=== PATIENT | female | born 1990 | race American Indian/Alaskan Native ===

== ENCOUNTER 2016-10-02 09:11 | Emergency (ER) | payer OTHER ==
[2016-10-02 09:20] VITALS: BP 120/82
--- NOTE | 2016-10-02 10:22 | Emergency Department Report ---
ED Back Pain/Injury HPI - General Chief Complaint: Back Pain/Injury Stated Complaint: RIGHT ARM, HAND AND BACK PAIN Time Seen by Provider: 10/02/16 10:21 Source: patient Limitations: No Limitations - History of Present Illness MD Complaint: back pain -: Gradual, week(s) Similar Symptoms Previously: Yes Radiation: other (right arm) Quality: burning, tingling Consistency: constant Improves With: none Worsens With: movement, sitting upright, walking, deep breaths/cough Associated Symptoms: denies: confusion, weakness, chest pain, numbness, difficulty walking, cough, difficulty urinating, fever/chills, headaches, nausea /vomiting, rash, shortness of breath, syncope - Related Data Previous Rx's Medication Instructions Recorded Last Taken Type HYDROcodone/APAP 5-325 [Sophia 1 each PO Q4HR PRN #15 tablet 02/13/15 Unknown Rx 5-325 mg TAB] Famotidine [Pepcid] 20 mg PO BID #40 tablet 08/17/15 Unknown Rx Hyoscyamine Subl [Levsin Sl 0.125 0.125 mg SL Q6HR PRN #20 tab 08/17/15 Unknown Rx TAB] Promethazine [Phenergan TAB] 25 mg PO Q6HR PRN #30 tab 08/17/15 Unknown Rx Metaxalone [Skelaxin] 800 mg PO TID #15 tablet 10/02/16 Unknown Rx traMADol [Ultram 50 MG tab] 50 mg PO Q4HR PRN #12 tablet 10/02/16 Unknown Rx Allergies Allergy/AdvReac Type Severity Reaction Status Date / Time No Known Allergies Allergy Unverified 02/13/15 19:10 ED Review of Systems ROS: Stated complaint: RIGHT ARM, HAND AND BACK PAIN Other details as noted in HPI Constitutional: see HPI Eyes: as per HPI ENT: as per HPI Respiratory: no symptoms reported Cardiovascular: as per HPI Gastrointestinal: as per HPI Genitourinary: as per HPI Musculoskeletal: back pain Skin: denies: rash, lesions Neurological: paresthesias (right arm). denies: headache ED Past Medical Hx - Past Medical History Previous Medical History?: No - Surgical History Past Surgical History?: Yes Additional Surgical History: tubal ligation - Social History Smoking Status: Never Smoker Substance Use Type: None - Medications Home Medications: Home Medications Medication Instructions Recorded Confirmed Last Taken Type HYDROcodone/APAP 5-325 [Sophia 1 each PO Q4HR PRN #15 tablet 02/13/15 Unknown Rx 5-325 mg TAB] Famotidine [Pepcid] 20 mg PO BID #40 tablet 08/17/15 Unknown Rx Hyoscyamine Subl [Levsin Sl 0.125 0.125 mg SL Q6HR PRN #20 tab 08/17/15 Unknown Rx TAB] Promethazine [Phenergan TAB] 25 mg PO Q6HR PRN #30 tab 08/17/15 Unknown Rx Metaxalone [Skelaxin] 800 mg PO TID #15 tablet 10/02/16 Unknown Rx traMADol [Ultram 50 MG tab] 50 mg PO Q4HR PRN #12 tablet 10/02/16 Unknown Rx ED Physical Exam - General Limitations: No Limitations General appearance: alert, in no apparent distress - Head Head exam: Present: atraumatic, normocephalic - Eye Eye exam: Present: PERRL, EOMI Pupils: Present: normal accommodation - ENT ENT exam: Present: normal exam, mucous membranes moist - Neck Neck exam: Present: tenderness (right torticollis), full ROM. Absent: normal inspection, meningismus, lymphadenopathy - Respiratory Respiratory exam: Present: normal lung sounds bilaterally. Absent: respiratory distress - Cardiovascular Cardiovascular Exam: Present: regular rate - Extremities Exam Extremities exam: Present: normal inspection, full ROM, normal capillary refill - Expanded Upper Extremity Exam Right Upper Arm exam: Present: normal inspection, full ROM. Absent: tenderness, swelling, ecchymosis, deformity Elbow exam: Present: normal inspection, full ROM. Absent: tenderness, swelling , ecchymosis, deformity Forearm Wrist exam: Present: normal inspection, full ROM. Absent: tenderness, swelling, ecchymosis Hand Wrist exam: Present: normal inspection, full ROM. Absent: tenderness, swelling, ecchymosis, deformity Neuro motor exam: Present: wrist extension intact, thumb opposition intact, thumb IP flexion intact, thumb adduction intact, fingers 2-5 abduction intact Neurosensory exam: Present: 2-point discrimination Vascular: Present: normal capillary refill. Absent: vascular compromise ED Course Vital Signs 10/02/16 09:15 Temperature 98.3 F Pulse Rate 87 Respiratory 18 Rate Blood Pressure 120/82 O2 Sat by Pulse 100 Oximetry Critical care attestation.: If time is entered above; I have spent that time in minutes in the direct care of this critically ill patient, excluding procedure time. ED Disposition Clinical Impression: Torticollis, Radiculopathy Disposition: DISCHARGED TO HOME OR SELFCARE Is pt being admited?: No Condition: Stable Instructions: Cervical Radiculopathy (ED) Prescriptions: Metaxalone [Skelaxin] 800 mg PO TID #15 tablet traMADol [Ultram 50 MG tab] 50 mg PO Q4HR PRN #12 tablet PRN Reason: Pain Referrals: PRIMARY CARE,MD [Primary Care Provider] - 3-5 Days Forms: Work/School Release Form(ED)
== END 2016-10-02 10:50 | disposition home or self-care (01) ==
LOC: ED 09:11
DX: M43.6 Torticollis (principal); M54.10 Radiculopathy, site unspecified
CPT/HCPCS: 99282

== ENCOUNTER 2019-07-13 23:50 | Emergency (ER) | payer SELFPAY ==
--- NOTE | 2019-07-14 03:20 | XRay Report ---
CHEST 1 VIEW 2:45 AM INDICATION / CLINICAL INFORMATION: Chest Pain. COMPARISON: None available. FINDINGS: SUPPORT DEVICES: None. HEART / MEDIASTINUM: The heart size and pulmonary vasculature are normal. The aorta is normal in sky apoorva. LUNGS / PLEURA: No significant pulmonary or pleural abnormality. No pneumothorax. ADDITIONAL FINDINGS: No significant additional findings. IMPRESSION: No acute findings. Signer Name: Adrian Regan MD Signed: 07/14/2019 3:15 AM Workstation Name: [id number]
--- NOTE | 2019-07-14 04:49 | Emergency Department Report ---
ED General Adult HPI - General Chief complaint: Chest Pain Stated complaint: TONGUE NUMB,CHEST PAIN,MOUTH WATERY,EYES HURT Source: patient Mode of arrival: Ambulatory Limitations: No Limitations - History of Present Illness Initial comments: Patient is a 29 yo AA female with no past medical history who presented to the ED with c/o acute onset persistent nasal and sinus congestion, dry cough, sore throat and pleuritic chest wall pain. Patient states that she was initially treated for acute URI and bronchitis about 10 days ago and completed a course of Azithromycin and prednisone dosepak. Patient denies dyspnea, nausea, vomiting, dizziness, chest pain, fever and chills or headache or abdominal pain. MD Complaint: Nasal and sinus congestion; dry cough; pleuritic chest pain -: Sudden, week(s) (1) Location: chest Radiation: non-radiation Severity scale (0 -10): 4 Quality: aching Consistency: constant Improves with: none Worsens with: none Associated Symptoms: denies other symptoms, cough. denies: confusion, chest pain, diaphoresis, fever/chills, headaches, loss of appetite, malaise, nausea/vomiting, rash, seizure, syncope, weakness Treatments Prior to Arrival: none - Related Data Previous Rx's Medication Instructions Recorded Last Taken Type HYDROcodone/APAP 5-325 [Mcintosh 1 each PO Q4HR PRN #15 tablet 02/13/15 Unknown Rx 5-325 mg TAB] Famotidine [Pepcid] 20 mg PO BID #40 tablet 08/17/15 Unknown Rx Hyoscyamine Subl [Levsin Sl 0.125 0.125 mg SL Q6HR PRN #20 tab 08/17/15 Unknown Rx TAB] Promethazine [Phenergan TAB] 25 mg PO Q6HR PRN #30 tab 08/17/15 Unknown Rx Metaxalone [Skelaxin] 800 mg PO TID #15 tablet 10/02/16 Unknown Rx traMADoL [Ultram 50 MG tab] 50 mg PO Q4HR PRN #12 tablet 10/02/16 Unknown Rx Azithromycin [Zithromax Z-BERTRAND] 250 mg PO DAILY #6 tab 07/01/18 Unknown Rx Fluticasone [Flonase] 1 spray NS QDAY #1 bottle 07/01/18 Unknown Rx guaiFENesin/CODEINE [Robitussin AC] 5 ml PO Q4H PRN #100 ml 07/01/18 Unknown Rx Azithromycin [Zithromax] 500 mg PO QDAY #3 tablet 07/03/19 Unknown Rx guaiFENesin/CODEINE [Robitussin AC] 5 ml PO Q6H PRN #120 ml 07/03/19 Unknown Rx predniSONE [Deltasone] 50 mg PO QDAY #5 tab 07/03/19 Unknown Rx Albuterol INH(or & Nicu Only) 1 - 2 puff IH Q6H PRN #1 inh 07/14/19 Unknown Rx [ProAir HFA Inhaler] Ibuprofen [Motrin] 600 mg PO Q8H PRN #20 tablet 07/14/19 Unknown Rx Allergies Allergy/AdvReac Type Severity Reaction Status Date / Time No Known Allergies Allergy Unverified 02/13/15 19:10 ED Review of Systems ROS: Stated complaint: TONGUE NUMB,CHEST PAIN,MOUTH WATERY,EYES HURT Other details as noted in HPI Constitutional: denies: chills, fever Eyes: denies: eye pain, eye discharge, vision change ENT: throat pain, congestion. denies: ear pain Respiratory: cough. denies: shortness of breath, SOB with exertion, SOB at rest, stridor, wheezing Cardiovascular: denies: chest pain, palpitations, dyspnea on exertion Endocrine: no symptoms reported Gastrointestinal: denies: abdominal pain, nausea, vomiting, diarrhea Genitourinary: denies: urgency, dysuria, discharge Musculoskeletal: denies: back pain, joint swelling, arthralgia Skin: denies: rash, lesions Neurological: denies: headache, weakness, paresthesias Psychiatric: denies: anxiety, depression Hematological/Lymphatic: denies: easy bleeding, easy bruising ED Past Medical Hx - Past Medical History Previous Medical History?: No - Surgical History Past Surgical History?: Yes Additional Surgical History: tubal ligation - Social History Smoking Status: Never Smoker Substance Use Type: None - Medications Home Medications: Home Medications Medication Instructions Recorded Confirmed Last Taken Type HYDROcodone/APAP 5-325 [Mcintosh 1 each PO Q4HR PRN #15 tablet 02/13/15 Unknown Rx 5-325 mg TAB] Famotidine [Pepcid] 20 mg PO BID #40 tablet 08/17/15 Unknown Rx Hyoscyamine Subl [Levsin Sl 0.125 0.125 mg SL Q6HR PRN #20 tab 08/17/15 Unknown Rx TAB] Promethazine [Phenergan TAB] 25 mg PO Q6HR PRN #30 tab 08/17/15 Unknown Rx Metaxalone [Skelaxin] 800 mg PO TID #15 tablet 10/02/16 Unknown Rx traMADoL [Ultram 50 MG tab] 50 mg PO Q4HR PRN #12 tablet 10/02/16 Unknown Rx Azithromycin [Zithromax Z-BERTRAND] 250 mg PO DAILY #6 tab 07/01/18 Unknown Rx Fluticasone [Flonase] 1 spray NS QDAY #1 bottle 07/01/18 Unknown Rx guaiFENesin/CODEINE [Robitussin AC] 5 ml PO Q4H PRN #100 ml 07/01/18 Unknown Rx Azithromycin [Zithromax] 500 mg PO QDAY #3 tablet 07/03/19 Unknown Rx guaiFENesin/CODEINE [Robitussin AC] 5 ml PO Q6H PRN #120 ml 07/03/19 Unknown Rx predniSONE [Deltasone] 50 mg PO QDAY #5 tab 07/03/19 Unknown Rx Albuterol INH(or & Nicu Only) 1 - 2 puff IH Q6H PRN #1 inh 07/14/19 Unknown Rx [ProAir HFA Inhaler] Ibuprofen [Motrin] 600 mg PO Q8H PRN #20 tablet 07/14/19 Unknown Rx ED Physical Exam - General Limitations: No Limitations General appearance: alert, in no apparent distress - Head Head exam: Present: atraumatic, normocephalic, normal inspection - Eye Eye exam: Present: normal appearance, PERRL, EOMI Pupils: Present: normal accommodation - ENT ENT exam: Present: normal exam, normal orophraynx, mucous membranes moist, TM's normal bilaterally, normal external ear exam - Neck Neck exam: Present: normal inspection, full ROM - Respiratory Respiratory exam: Present: normal lung sounds bilaterally. Absent: respiratory distress, wheezes, rales, rhonchi, chest wall tenderness, accessory muscle use, decreased breath sounds - Cardiovascular Cardiovascular Exam: Present: regular rate, normal rhythm, normal heart sounds. Absent: systolic murmur, diastolic murmur, rubs, gallop - GI/Abdominal GI/Abdominal exam: Present: soft, normal bowel sounds. Absent: distended, tenderness, guarding, hyperactive bowel sounds, hypoactive bowel sounds, organomegaly - Extremities Exam Extremities exam: Present: normal inspection, full ROM, normal capillary refill - Back Exam Back exam: Present: normal inspection, full ROM. Absent: muscle spasm, paraspinal tenderness - Neurological Exam Neurological exam: Present: alert, oriented X3, CN II-XII intact, normal gait, reflexes normal - Psychiatric Psychiatric exam: Present: normal affect, normal mood - Skin Skin exam: Present: warm, dry, intact, normal color. Absent: rash ED Course Vital Signs 07/14/19 01:55 Temperature 98.4 F Pulse Rate 70 Respiratory 18 Rate Blood Pressure 142/80 O2 Sat by Pulse 100 Oximetry ED Medical Decision Making - Medical Decision Making This is a 29 yo AA female with no past medical history who presented to the ED with c/o acute onset persistent nasal and sinus congestion, dry cough, sore throat and pleuritic chest wall pain. In the ED patient is alert and oriented x 3, and is in no acute distress. Chest x-ray shows no acute cardiopulmonary abnormalities or pneumonitis. Patient was discharged home on medications, and advised to follow up with her PCP in 5-7 days for reevaluation. - Differential Diagnosis Bronchitis; Pneumonia; URI; Strep pharyngitis Critical care attestation.: If time is entered above; I have spent that time in minutes in the direct care of this critically ill patient, excluding procedure time. ED Disposition Clinical Impression: Acute upper respiratory infection, Left-sided chest wall pain Acute bronchitis Qualifiers: Bronchitis organism: other organism Qualified Code(s): J20.8 - Acute bronchitis due to other specified organisms Disposition: - TO HOME OR SELFCARE Is pt being admited?: No Does the pt Need Aspirin: No Condition: Stable Instructions: Acute Bronchitis (ED), Chest Pain (ED), Upper Respiratory Infection (ED) Additional Instructions: Take medication with food, drink plenty of fluids and follow up with your Primary Care Physician in 7-10 days. Return to the ED immediately if symptoms get worse. Prescriptions: Ibuprofen [Motrin] 600 mg PO Q8H PRN #20 tablet PRN Reason: Pain Albuterol INH(or & Nicu Only) [ProAir HFA Inhaler] 1 - 2 puff IH Q6H PRN #1 inh PRN Reason: Dyspnea Referrals: PRIMARY CARE, [Primary Care Provider] - 3-5 Days Time of Disposition: 04:48 Print Language: KYRGYZ
[2019-07-14 05:37] VITALS: BP 138/80
== END 2019-07-14 05:42 | disposition home or self-care (01) ==
LOC: ED 23:50
DX: J20.8 Acute bronchitis due to other specified organisms (principal); J06.9 Acute upper respiratory infection, unspecified; Z98.51 Tubal ligation status; Z79.899 Other long term (current) drug therapy
CPT/HCPCS: 71045; 93005; 93010

== ENCOUNTER 2021-04-12 21:53 | Emergency (ER) | payer SELFPAY ==
--- NOTE | 2021-04-12 22:27 | Emergency Department Report ---
Minor Respiratory - HPI Stated Complaint: FEVER, CHILLS, DIZZINESS, EYE PAIN Time Seen by Provider: 04/12/21 22:26 Duration: 5 Days Pain Location: Chest Severity: mild Minor Respiratory: Yes Able to Tolerate Fluids, No Rhinorrhea, No Sore Throat, No Ear Pain, No Cough, No Sick Contacts, No Hemoptysis, No Chest Pain, No Shortness of Breath, No Fever Other History: 31 YO COMES TO ER WITH COLD COUGH CONGESTION. SON POS FOR COVID19 LAST WEEK. PT HAD NEG COVID TEST BUT DOESNT FEEL WELL SO SHE COMES TO ER. AMBULATORY AND NON ILL APPEARING ON EXAM ED Review of Systems ROS: Stated complaint: FEVER, CHILLS, DIZZINESS, EYE PAIN Other details as noted in HPI Comment: All other systems reviewed and negative ED Past Medical Hx - Past Medical History Previous Medical History?: No - Surgical History Past Surgical History?: No Additional Surgical History: tubal ligation - Family History Family history: asthma - Social History Smoking Status: Never Smoker Substance Use Type: None - Medications Home Medications: Home Medications Medication Instructions Recorded Confirmed Last Taken Type HYDROcodone/APAP 5-325 [[place] 1 each PO Q4HR PRN #15 tablet 02/13/15 Unknown Rx 5-325 mg TAB] Famotidine [Pepcid] 20 mg PO BID #40 tablet 08/17/15 Unknown Rx Hyoscyamine Subl [Levsin Sl 0.125 0.125 mg SL Q6HR PRN #20 tab 08/17/15 Unknown Rx TAB] Promethazine [Phenergan TAB] 25 mg PO Q6HR PRN #30 tab 08/17/15 Unknown Rx Metaxalone [Skelaxin] 800 mg PO TID #15 tablet 10/02/16 Unknown Rx traMADoL [Ultram 50 MG tab] 50 mg PO Q4HR PRN #12 tablet 10/02/16 Unknown Rx Azithromycin [Zithromax Z-BERTRAND] 250 mg PO DAILY #6 tab 07/01/18 Unknown Rx Fluticasone [Flonase] 1 spray NS QDAY #1 bottle 07/01/18 Unknown Rx guaiFENesin/CODEINE [Robitussin AC] 5 ml PO Q4H PRN #100 ml 07/01/18 Unknown Rx Azithromycin [Zithromax] 500 mg PO QDAY #3 tablet 07/03/19 Unknown Rx guaiFENesin/CODEINE [Robitussin AC] 5 ml PO Q6H PRN #120 ml 07/03/19 Unknown Rx predniSONE [Deltasone] 50 mg PO QDAY #5 tab 07/03/19 Unknown Rx Albuterol Mdi (or & Nicu Only) 1 - 2 puff IH Q6H PRN #1 inh 07/14/19 Unknown Rx [ProAir HFA Inhaler] Ibuprofen [Motrin] 600 mg PO Q8H PRN #20 tablet 07/14/19 Unknown Rx Minor Respiratory Exam - Exam General: Vital signs noted. No distress. Alert and acting appropriately. HEENT: Yes Moist Mucous Membranes, No Pharyngeal Erythema, No Pharyngeal Exudates, No Rhinorrhea, No Conjuctival Injection, No Frontal Tenderness, No Maxillary Tenderness Ear: Neither TM Bulge, Neither TM Erythema, Neither EAC Pain, Neither EAC Discharge Neck: Yes Supple, No Adenopathy Lungs: Yes Good Air Exchange, No Wheezes, No Ronchi, No Stridor, No Cough, No Labored Respirations, No Retractions, No Use of Accessory Muscles, No Other Abnormal Lung Sounds Heart: Yes Regular, No Murmur Abdomen: Yes Normal Bowel Sounds, No Tenderness, No Peritoneal Signs Skin: No Rash, No Edema Neurologic: Alert and oriented, no deficits. Musculoskeletal: Unremarkable. ED Medical Decision Making - Radiology Data Radiology results: report reviewed, image reviewed NAP - Medical Decision Making VS NORMAL DOCUMENTED MANUALLY BY RN XRAY NAP MOTRIN AND DECADRON IN ER FOR COMFORT DC HOME WITH DC PLAN OF CARE INCLUDING OTC MEDS AND FOLLOW UP WITH PCP. PT VERBALIZES UNDERSTANDING. - Differential Diagnosis RO PNA/COVID/URI Critical care attestation.: If time is entered above; I have spent that time in minutes in the direct care of this critically ill patient, excluding procedure time. ED Disposition Clinical Impression: URI (upper respiratory infection) Disposition: HOME / SELF CARE / HOMELESS Is pt being admited?: No Does the pt Need Aspirin: No Condition: Stable Instructions: Viral Respiratory Infection, [id number] Additional Instructions: OVER THE COUNTER SIGN AND SYMPTOM RELIEF XRAY NORMAL TODAY FOLLOW UP WITH PCP IN 48 HOURS IF NOT FEELING BETTER REFERRAL BELOW Referrals: DARLENE TOUSSAINT MD [Staff Physician] - 3-5 Days Forms: Work/School Release Form(ED) Time of Disposition: 22:27
[2021-04-12] MEDS ORDERED: dexAMETHasone 4 MG/ML VIAL IM ONE (23:00)
[2021-04-12] MEDS ORDERED: IBUPROFEN 800 MG TAB PO ONE (23:01)
--- NOTE | 2021-04-13 00:54 | XRay Report ---
CHEST 2 VIEWS INDICATION / CLINICAL INFORMATION: COUGH. COMPARISON: Chest x-ray 07/14/2019 FINDINGS: SUPPORT DEVICES: None. HEART / MEDIASTINUM: No significant abnormality. LUNGS / PLEURA: No significant pulmonary or pleural abnormality. No pneumothorax. ADDITIONAL FINDINGS: No significant additional findings. IMPRESSION: 1. No acute findings. Signer Name: Patel Gavin MD Signed: 04/13/2021 12:50 AM Workstation Name: [id number]
== END 2021-04-12 23:25 | disposition home or self-care (01) ==
LOC: ED 21:53
DX: J06.9 Acute upper respiratory infection, unspecified (principal); Z98.51 Tubal ligation status; Z79.899 Other long term (current) drug therapy
CPT/HCPCS: 71046; 99283; J1100

== ENCOUNTER 2021-05-26 13:31 | Observation (INO) | payer MEDICAID ==
[2021-05-26] MEDS ORDERED: ONDANSETRON 4 MG/2 ML INJ IV ONE (13:57)
[2021-05-26] MEDS ORDERED: SODIUM CHLORIDE 0.9% 1000 ML 1,000 ML IV ONE (13:57)
[2021-05-26] MEDS ORDERED: MORPHINE 4 MG/1 ML INJ IV ONE (13:57)
--- NOTE | 2021-05-26 14:11 | Emergency Department Report ---
ED General Adult HPI - General Chief complaint: Back Pain/Injury Stated complaint: ECTOPIC Time Seen by Provider: 05/26/21 13:48 Source: patient Mode of arrival: Ambulatory Limitations: No Limitations - History of Present Illness Initial comments: Patient is a 31-year-old female presents emergency room with complaints of lower abdominal pressure and rectal pressure that began a week ago. She states that she went to an emergency department was prescribed medications for constipation. She states that she was able to have a bowel movement. She states today she followed up with Dr. Jensen at [place] [facility] and had ultrasound perfor med and states that she was diagnosed with an ectopic . She reports that she was sent to the emergency department for likely surgical procedure. She denies any fever, vomiting, diarrhea, vaginal bleeding, vaginal discharge. She states that she is still been having regular menstrual cycles. No allergies to medications. She denies any history of ectopic . Severity scale (0 -10): 10 - Related Data Previous Rx's Medication Instructions Recorded Last Taken Type HYDROcodone/APAP 5-325 [[place] 1 each PO Q4HR PRN #15 tablet 02/13/15 Unknown Rx 5-325 mg TAB] Famotidine [Pepcid] 20 mg PO BID #40 tablet 08/17/15 Unknown Rx Hyoscyamine Subl [Levsin Sl 0.125 0.125 mg SL Q6HR PRN #20 tab 08/17/15 Unknown Rx TAB] Promethazine [Phenergan TAB] 25 mg PO Q6HR PRN #30 tab 08/17/15 Unknown Rx Metaxalone [Skelaxin] 800 mg PO TID #15 tablet 10/02/16 Unknown Rx traMADoL [Ultram 50 MG tab] 50 mg PO Q4HR PRN #12 tablet 10/02/16 Unknown Rx Azithromycin [Zithromax Z-BERTRAND] 250 mg PO DAILY #6 tab 07/01/18 Unknown Rx Fluticasone [Flonase] 1 spray NS QDAY #1 bottle 07/01/18 Unknown Rx guaiFENesin/CODEINE [Robitussin AC] 5 ml PO Q4H PRN #100 ml 07/01/18 Unknown Rx Azithromycin [Zithromax] 500 mg PO QDAY #3 tablet 07/03/19 Unknown Rx guaiFENesin/CODEINE [Robitussin AC] 5 ml PO Q6H PRN #120 ml 07/03/19 Unknown Rx predniSONE [Deltasone] 50 mg PO QDAY #5 tab 07/03/19 Unknown Rx Albuterol Mdi (or & Nicu Only) 1 - 2 puff IH Q6H PRN #1 inh 07/14/19 Unknown Rx [ProAir HFA Inhaler] Ibuprofen [Motrin] 600 mg PO Q8H PRN #20 tablet 07/14/19 Unknown Rx Allergies Allergy/AdvReac Type Severity Reaction Status Date / Time No Known Allergies Allergy Verified 04/12/21 22:27 ED Review of Systems ROS: Stated complaint: ECTOPIC Other details as noted in HPI Comment: All other systems reviewed and negative ED Past Medical Hx - Surgical History Additional Surgical History: tubal ligation - Social History Smoking Status: Never Smoker Substance Use Type: None - Medications Home Medications: Home Medications Medication Instructions Recorded Confirmed Last Taken Type HYDROcodone/APAP 5-325 [[place] 1 each PO Q4HR PRN #15 tablet 02/13/15 Unknown Rx 5-325 mg TAB] Famotidine [Pepcid] 20 mg PO BID #40 tablet 08/17/15 Unknown Rx Hyoscyamine Subl [Levsin Sl 0.125 0.125 mg SL Q6HR PRN #20 tab 08/17/15 Unknown Rx TAB] Promethazine [Phenergan TAB] 25 mg PO Q6HR PRN #30 tab 08/17/15 Unknown Rx Metaxalone [Skelaxin] 800 mg PO TID #15 tablet 10/02/16 Unknown Rx traMADoL [Ultram 50 MG tab] 50 mg PO Q4HR PRN #12 tablet 10/02/16 Unknown Rx Azithromycin [Zithromax Z-BERTRAND] 250 mg PO DAILY #6 tab 07/01/18 Unknown Rx Fluticasone [Flonase] 1 spray NS QDAY #1 bottle 07/01/18 Unknown Rx guaiFENesin/CODEINE [Robitussin AC] 5 ml PO Q4H PRN #100 ml 07/01/18 Unknown Rx Azithromycin [Zithromax] 500 mg PO QDAY #3 tablet 07/03/19 Unknown Rx guaiFENesin/CODEINE [Robitussin AC] 5 ml PO Q6H PRN #120 ml 07/03/19 Unknown Rx predniSONE [Deltasone] 50 mg PO QDAY #5 tab 07/03/19 Unknown Rx Albuterol Mdi (or & Nicu Only) 1 - 2 puff IH Q6H PRN #1 inh 07/14/19 Unknown Rx [ProAir HFA Inhaler] Ibuprofen [Motrin] 600 mg PO Q8H PRN #20 tablet 07/14/19 Unknown Rx ED Physical Exam - General Limitations: No Limitations General appearance: alert, in no apparent distress - Head Head exam: Present: atraumatic, normocephalic - Eye Eye exam: Present: normal appearance - ENT ENT exam: Present: mucous membranes moist - Respiratory Respiratory exam: Present: normal lung sounds bilaterally. Absent: respiratory distress, wheezes, rales, rhonchi, stridor, chest wall tenderness, accessory muscle use, decreased breath sounds, prolonged expiratory - Cardiovascular Cardiovascular Exam: Present: regular rate, normal rhythm, normal heart sounds. Absent: systolic murmur, diastolic murmur, rubs, gallop - GI/Abdominal GI/Abdominal exam: Present: soft, tenderness (suprapubic), normal bowel sounds. Absent: distended, guarding, rebound, rigid - Rectal Rectal exam: Present: other (teacher resource: Emely, ssds mk 2 advanced operator, no external or internal hemorrhoids, no edema or induration, no gross blood) - Neurological Exam Neurological exam: Present: alert, oriented X3 - Psychiatric Psychiatric exam: Present: normal affect, normal mood - Skin Skin exam: Present: warm, dry, intact ED Course Vital Signs 05/26/21 13:35 Temperature 98.5 F Pulse Rate 91 H Respiratory 16 Rate Blood Pressure 129/84 [Right] O2 Sat by Pulse 97 Oximetry - Consultations Consultation #1: 05/26/21 14:[address] [facility], [facility], she states that she saw the patient in office today and the ultrasound showed a 6 cm left adnexal mass without IUP which was most consistent with ectopic , she states to keep patient n.p.o. and she will take patient to the OR, she advised to order labs ED Medical Decision Making - Lab Data Result diagrams: 05/26/21 14:25 05/26/21 14:25 - Medical Decision Making Patient is a 31-year-old female presents emergency room with complaints of lower abdominal pressure and rectal pressure that began a week ago. She states that she went to an emergency department was prescribed medications for constipation. She states that she was able to have a bowel movement. She states today she followed up with Dr. Jensen at [place] [facility] and had ultrasound performed and states that she was diagnosed with an ectopic . She reports that she was sent to the emergency department for likely surgical procedure. She denies any fever, vomiting, diarrhea, vaginal bleeding, vaginal discharge. She states that she is still been having regular menstrual cycles. No allergies to medications. She denies any history of ectopic . Vit als are stable. On exam patient has suprapubic abdominal tenderness palpation,teacher resource: Emely ssds mk 2 advanced operator, no external or internal hemorrhoids, no edema or induration, no gross blood. Discussed case with Dr. Jensen, [facility], she states that she saw the patient in office today and the ultrasound showed a 6 cm left adnexal mass without IUP which was most consistent with ectopic , she states to keep patient n.p.o. and she will take patient to the OR, she advised to order labs. Critical care attestation.: If time is entered above; I have spent that time in minutes in the direct care of this critically ill patient, excluding procedure time. ED Disposition Clinical Impression: Ectopic Qualifiers: Location of ectopic : unspecified location Intrauterine status: without intrauterine Qualified Code(s): O00.90 - Unspecified ectopic without intrauterine Disposition: 02 [facility]ORT [facility]M [facility] Is pt being admited?: Yes Does the pt Need Aspirin: No Condition: Stable
--- NOTE | 2021-05-26 14:14 | History and Physical Report ---
History of Present Illness Date of examination: 05/26/21 Chief complaint: pelvic pain History of present illness: Pt is a 31 year old -[place] female LMP unsure who presents as a new patient to this office today with a history of tubal ligation in 2009, a positive test with inappropriate rise in HCG from 800 to 2100 over a 4 wk time span, no IUP visualized on ultrasound on two ultrasounds performed 4 wks apart, and a left heterogenous adnexal mass 6.2 cm noted highly suspicious for ectopic on transvaginal ultrasound today. She has not eaten since yesterday May 25, 2021. Past History Past Medical History: other (Obesity) Past Surgical History: BODY FITTER/uterine surgery (tubal ligation 2009 ) Family/Genetic History: none Social history: no significant social history - Obstetrical History : 4 Para: 3 Hx # Term Pregnancies: 3 Number of Pregnancies: 0 Spontaneous Abortions: 0 Induced : 0 Number of Living Children: 3 Medications and Allergies Allergies Allergy/AdvReac Type Severity Reaction Status Date / Time No Known Allergies Allergy Verified 04/12/21 22:27 Home Medications Medication Instructions Recorded Confirmed Last Taken Type HYDROcodone/APAP 5-325 [[place] 1 each PO Q4HR PRN #15 tablet 02/13/15 Unknown Rx 5-325 mg TAB] Famotidine [Pepcid] 20 mg PO BID #40 tablet 08/17/15 Unknown Rx Hyoscyamine Subl [Levsin Sl 0.125 0.125 mg SL Q6HR PRN #20 tab 08/17/15 Unknown Rx TAB] Promethazine [Phenergan TAB] 25 mg PO Q6HR PRN #30 tab 08/17/15 Unknown Rx Metaxalone [Skelaxin] 800 mg PO TID #15 tablet 10/02/16 Unknown Rx traMADoL [Ultram 50 MG tab] 50 mg PO Q4HR PRN #12 tablet 10/02/16 Unknown Rx Azithromycin [Zithromax Z-BERTRAND] 250 mg PO DAILY #6 tab 07/01/18 Unknown Rx Fluticasone [Flonase] 1 spray NS QDAY #1 bottle 07/01/18 Unknown Rx guaiFENesin/CODEINE [Robitussin AC] 5 ml PO Q4H PRN #100 ml 07/01/18 Unknown Rx Azithromycin [Zithromax] 500 mg PO QDAY #3 tablet 07/03/19 Unknown Rx guaiFENesin/CODEINE [Robitussin AC] 5 ml PO Q6H PRN #120 ml 07/03/19 Unknown Rx predniSONE [Deltasone] 50 mg PO QDAY #5 tab 07/03/19 Unknown Rx Albuterol Mdi (or & Nicu Only) 1 - 2 puff IH Q6H PRN #1 inh 07/14/19 Unknown Rx [ProAir HFA Inhaler] Ibuprofen [Motrin] 600 mg PO Q8H PRN #20 tablet 07/14/19 Unknown Rx Active Meds: Active Medications Sodium Chloride (Nacl 0.9% 1000 Ml) 1,000 mls @ 999 mls/hr IV BOLUS ONE Stop: 05/26/21 14:57 Review of Systems All systems: negative - Vital Signs Vital signs: Vital Signs Temp Pulse Resp BP Pulse Ox 98.5 F 91 H 16 129/84 97 05/26/21 13:35 05/26/21 13:35 05/26/21 13:35 05/26/21 13:35 05/26/21 13:35 Temp Pulse Resp BP Pulse Ox 98.5 F 91 H 16 129/84 97 05/26/21 13:35 05/26/21 13:35 05/26/21 13:35 05/26/21 13:35 05/26/21 13:35 - Physical Exam Breasts: Positive: deferred Abdomen: Positive: soft, tenderness Extremities: Positive: normal Results All other labs normal. Assessment and Plan A: Left Ectopic Pelvic Pain History of tubal ligation in 2009 Obesity P: Proceed with laparoscopic salpingectomy and other indicated procedures
[2021-05-26] MEDS ORDERED: ceFAZolin/Water 2 GM/20 ML 2 GM/20 ML SYRINGE IV NR (15:00)
[2021-05-26 15:02] LABS: Alanine Aminotransferase 8 units/L (7-56); Albumin 4.3 g/dL (3.9-5); BUN/Creatinine Ratio 13; Blood Urea Nitrogen 8 mg/dL (7-17); Calcium 9.2 mg/dL (8.4-10.2); Hemolysis Index 12
[2021-05-26 15:04] LABS: Basophils # (Auto) 0.1 K/mm3 (0.0-0.1); Basophils % (Auto) 0.9 % (0.0-1.8); Eosinophils # (Auto) 0.1 K/mm3 (0.0-0.4); Eosinophils % (Auto) 0.7 % (0.0-4.3); Hematocrit 33.9 % (30.3-42.9); Lymphocytes # (Auto) 3.6 K/mm3 (1.2-5.4); Mean Corpuscular HGB Conc 32 % (30-34); Mean Corpuscular Volume 91 fl (79-97); Monocytes # (Auto) 0.5 K/mm3 (0.0-0.8); Monocytes % (Auto) 4.9 % (0.0-7.3); Platelet Count 438 K/mm3 (140-440); Red Blood Count 3.72 M/mm3 (3.65-5.03); Red Cell Distribution Width 14.3 % (13.2-15.2)
--- NOTE | 2021-05-26 19:49 | Consultation ---
History of Present Illness Consult date: 05/26/21 - History of present illness History of present illness: 31 yo female with a left ectopic . Dr. Jensen asked for an intra-op consultation b/o bowel overlying the left ovary and tube. Past History Social history: no significant social history Medications and Allergies Allergies Allergy/AdvReac Type Severity Reaction Status Date / Time No Known Allergies Allergy Verified 04/12/21 22:27 Home Medications Medication Instructions Recorded Confirmed Last Taken Type HYDROcodone/APAP 5-325 [[place] 1 each PO Q4HR PRN #15 tablet 02/13/15 05/27/21 Unknown Rx 5-325 mg TAB] Famotidine [Pepcid] 20 mg PO BID #40 tablet 08/17/15 05/27/21 Unknown Rx Hyoscyamine Subl [Levsin Sl 0.125 0.125 mg SL Q6HR PRN #20 tab 08/17/15 05/27/21 Unknown Rx TAB] Promethazine [Phenergan TAB] 25 mg PO Q6HR PRN #30 tab 08/17/15 05/27/21 Unknown Rx Metaxalone [Skelaxin] 800 mg PO TID #15 tablet 10/02/16 05/27/21 Unknown Rx traMADoL [Ultram 50 MG tab] 50 mg PO Q4HR PRN #12 tablet 10/02/16 05/27/21 Unknown Rx Azithromycin [Zithromax Z-BERTRAND] 250 mg PO DAILY #6 tab 07/01/18 05/27/21 Unknown Rx Fluticasone [Flonase] 1 spray NS QDAY #1 bottle 07/01/18 05/27/21 Unknown Rx guaiFENesin/CODEINE [Robitussin AC] 5 ml PO Q4H PRN #100 ml 07/01/18 05/27/21 Unknown Rx Azithromycin [Zithromax] 500 mg PO QDAY #3 tablet 07/03/19 05/27/21 Unknown Rx guaiFENesin/CODEINE [Robitussin AC] 5 ml PO Q6H PRN #120 ml 07/03/19 05/27/21 Unknown Rx predniSONE [Deltasone] 50 mg PO QDAY #5 tab 07/03/19 05/27/21 Unknown Rx Albuterol Mdi (or & Nicu Only) 1 - 2 puff IH Q6H PRN #1 inh 07/14/19 05/27/21 Unknown Rx [ProAir HFA Inhaler] Ibuprofen [Motrin] 600 mg PO Q8H PRN #20 tablet 07/14/19 05/27/21 Unknown Rx Docusate Sodium [Colace] 100 mg PO BID PRN #60 capsule 05/27/21 Unknown Rx Ibuprofen [Motrin] 800 mg PO Q8HR PRN #30 tablet 05/27/21 Unknown Rx oxyCODONE /ACETAMINOPHEN [Percocet 1 tab PO Q6HR PRN #30 tablet 05/27/21 Unknown Rx 5/325] Active Meds: Active Medications Cefazolin Sodium (Ancef/Sterile Water 2 Gm/20 Ml) 2 gm in 20 mls @ 80 mls/hr IV PREOP NR; Protocol Stop: 05/26/21 21:00 Review of Systems ROS unobtainable: due to endotracheal tube Exam Vital Signs Temp Pulse Resp BP Pulse Ox 98.5 F 91 H 16 129/84 97 05/26/21 13:35 05/26/21 13:35 05/26/21 13:35 05/26/21 13:35 05/26/21 13:35 - Abdomen Abdomen: Present: other (See op note.) Results - Labs 05/27/21 05:52 05/26/21 14:25 Abnormal lab results 05/26/21 Range/Units 14:25 HCG, Quant 499.1 H (0-4) mIU/mL Diabetes panel 05/26/21 Range/Units 14:25 Sodium 137 (137-145) mmol/L Potassium 4.1 (3.6-5.0) mmol/L Chloride 100.2 (98-107) mmol/L Carbon Dioxide 23 (22-30) mmol/L BUN 8 (7-17) mg/dL Creatinine 0.6 (0.6-1.2) mg/dL Glucose 90 (65-100) mg/dL Calcium 9.2 (8.4-10.2) mg/dL AST 13 (5-40) units/L ALT 8 (7-56) units/L Alkaline Phosphatase 68 (35-129) units/L Total Protein 8.2 (6.3-8.2) g/dL Albumin 4.3 (3.9-5) g/dL Calcium panel 05/26/21 Range/Units 14:25 Calcium 9.2 (8.4-10.2) mg/dL Albumin 4.3 (3.9-5) g/dL Pituitary panel 05/26/21 Range/Units 14:25 Sodium 137 (137-145) mmol/L Potassium 4.1 (3.6-5.0) mmol/L Chloride 100.2 (98-107) mmol/L Carbon Dioxide 23 (22-30) mmol/L BUN 8 (7-17) mg/dL Creatinine 0.6 (0.6-1.2) mg/dL Glucose 90 (65-100) mg/dL Calcium 9.2 (8.4-10.2) mg/dL Adrenal panel 05/26/21 Range/Units 14:25 Sodium 137 (137-145) mmol/L Potassium 4.1 (3.6-5.0) mmol/L Chloride 100.2 (98-107) mmol/L Carbon Dioxide 23 (22-30) mmol/L BUN 8 (7-17) mg/dL Creatinine 0.6 (0.6-1.2) mg/dL Glucose 90 (65-100) mg/dL Calcium 9.2 (8.4-10.2) mg/dL Total Bilirubin 0.20 (0.1-1.2) mg/dL AST 13 (5-40) units/L ALT 8 (7-56) units/L Alkaline Phosphatase 68 (35-129) units/L Total Protein 8.2 (6.3-8.2) g/dL Albumin 4.3 (3.9-5) g/dL Assessment and Plan - Patient Problems (1) Ectopic of left ovary Status: Acute Plan to address problem: 1) See operative note.
--- NOTE | 2021-05-26 19:50 | Procedure Note ---
Date of procedure: 05/26/21 Pre-op diagnosis: 1) Left ectopic 2) Intra-abdominal adhesions Post-op diagnosis: same Procedure: Lysis of adhesions Description of procedure: Pt was on the OR table, intubated, prepped and draped. A Love-Stiel laparotomy incision had been made by Dr. Jensen. The sigmoid colon was overlying the left ovary and tube. I incised the sigmoid lateral peritoneal attachments and reflected the sigmoid medially. A small amount of bleeding was controlled with the Bovie. After this, Dr. Jensen was able to easily identify the left ovary, tube and ectopic . Dr. Jensen then proceeded with the LSO. The beginning and remainder of the procedure will be dictated by Dr. Jensen. Anesthesia: KEITH Surgeon: RAHEEL ARREDONDO Estimated blood loss: minimal Pathology: none Condition: stable Disposition: no change
[2021-05-26] MEDS ORDERED: ACETAMINOPHEN 325 MG TAB PO PRN (21:07)
[2021-05-26] MEDS ORDERED: MORPHINE 2 MG/1 ML INJ IV PRN (21:07)
[2021-05-26] MEDS ORDERED: NALOXONE 0.4 MG/1 ML INJ IV PRN (21:07)
[2021-05-26] MEDS ORDERED: oxyCODONE /ACETAMINOPHEN 5-325MG TAB PO PRN (21:07)
[2021-05-26] MEDS ORDERED: MORPHINE 4 MG/1 ML INJ IV PRN (21:07)
[2021-05-26] MEDS ORDERED: IBUPROFEN 800 MG TAB PO PRN (21:07)
[2021-05-26] MEDS ORDERED: LACTATED RINGERS 1,000 ML IV SCH (21:15)
--- NOTE | 2021-05-26 21:15 | Operative Report ---
Operative Report Operative Report: Date of Surgery: May 26, 2021 Preoperative Diagnosis: 1) Left ectopic 2) Pelvic Pain Postoperative Diagnosis: Same 3) Intrabdominal Adhesions Procedure: 1) Diagnostic Laparoscopy 2) Exploratory Laparotomy 3) Left Salpingectomy Surgeon: Mora Jensen MD Ward Nurse: Milka Dominique MD Intraoperative Principal Gifts Officer: Pantera Dixon MD Anesthesia: GETA Findings: 1) Small mobile anteverted uterus that sounded to 7 cm 2) Left ectopic ~ 6 cm 3) Normal appearing uterus, ovaries and right fallopian tube 4) Organized clot in the cul-de-sac 5) Bowel adherent to adnexal mass requiring intraoperative consult to General Surgery EBL: 200 mL Urine output: 1300 mL, clear at the end of the procedure Specimen: Left ectopic and fallopian tube to pathology Complications: None. Counts correct x 2 Drains: None Disposition: Stable to PACU Indication for Procedure: This pt is a 31 year old -[place] female presents for surgical management of left ectopic . Operation In Detail: After the risks, benefits, complications and alternatives were explained to the patient, she gave informed consent for the procedure. She was then taken to the operating room and placed in the dorsal supine position with her IV noted to be running well and SCDs in place and functioning. General endotracheal anesthesia was induced without difficulty. The patient was then placed in the dorsal lithotomy position and prepped and draped in a normal sterile fashion. A time out was then performed. An exam under anesthesia revealed a small mobile anteverted uterus. A rios catheter was placed to drain the bladder. A bi-valve speculum was placed in the vagina to visualize the cervix. A single tooth tenaculum was placed on the anterior lip of the cervix for traction. A uterine manipulator was then placed. The single tooth tenaculum and speculum were removed from the vagina atraumatically. The surgeon's gloves were then changed. Attention was then turned to entry into the abdominal cavity. A 5 mm incision was made with an 11 blade in the inferior fold of the umbilicus. The skin was grasped on either side of the umbilicus and tented up. The abdomen was not able to be insufflated at that site despite multiple attempts at entry with the Veres needle. A 5 mm supraumbilical incision was made with the 11 blade. the abdomen was tented up with towel clips. The Veres needle was placed into the peritoneal cavity, confirmed with a saline drop test. The abdomen was then insufflated with CO2 gas to a pressure of 15 mm Hg. A 5 mm optical trocar was then placed. An anatomic survey was then performed with findings as indicated above. A 12 mm trocar site was created 4 cm superior to the pubic symphysis in the midline. An 12 mm trocar was then placed under direct visualization. A 5 mm trocar was placed in the LLQ under direct visualization, lateral to the rectus muscles. The patient was placed in the Trendelenburg position. The uterus was elevated, and each fallopian tube was followed out to the fimbriae and a left ectopic was noted. Organized clot was noted in the cul-de-sac and was suctioned with the suction washer and capper machine operator. The bowel was noted to adherent to the left adnexal mass. In the interest of patient safety, the decision was made to abandon the laparoscpic approach to perform exploratory laparotomy, and General Surgeon Pantera Dixon MD was consulted. All instruments and trocars were removed from the abdomen at this time. The uterine manipulator was removed atraumatically. The surgeon's gloves were changed. The patient was placed in the dorsal supine position. A Pfannenstiel incision was created incorporating the 12 mm trocar site with the knife. The subcutaneous tissue was dissected down to the fascia with the Bovie. The fascia was incised in the midline and extended bilaterally with the Bovie. The rectus muscles were in the midline. The peritoneum was entered sharply between two Ann clamps. At this time the patient was placed in Trendelenburg position, the bowel was packed with moist, tagged laps and the O 'Basil-O'Gregory retractor was placed. At this time Dr Dixon joined the case. He evaluated the area of bowel adhesion to the adnexal mass and dissected it away from the mass. He then exited the case. Please see separate operative report. At the left adnexal mass was able to be isolated. Two Nan clamped were placed across the left fallopian tube, and the specimen was excised with curved scissors. A tie on a pass was used to initially secure the pedicle, followed by a 0-Vicryl stitch. The left fallopian tube containing the ectopic was then sent to pathology. At this time the abdomen was irrigated. Hemostasis was noted and Surgicel powder was placed across the remaining pedicle. All laps and instruments were then removed from the abdominal cavity. The peritoneum was reapproximated with 3-0 Vicryl in a running fashion incorporating the rectus muscles. The fascia was reapproximated with 0 Vicryl in a running fashion. The subcutaneous tissue was reapproximated with 2-0 Vicryl in a running fashion. The skin was reapproximated with 3-0 Monocryl in a subcuticular fashion. The incision was then covered with skin glue. The three remaining laparoscopic incisions were reapproximated with 4-0 Monocryl in a subcuticular fashion and then covered with skin glue. The rios catheter was removed. At this time the procedure was ended. The patient was extubated without difficulty and subsequently taken to the PACU in stable condition. All instrument, needle and lap counts were correct 2.
--- NOTE | 2021-05-26 21:15 | Post Operative Note ---
Pre-op diagnosis: Left Ectopic , Pelvic Pain Post-op diagnosis: other (Same, Intraabdominal Adhesions) Findings: 1) Large 6 cm left adnexal mass 2) Cul-de-sac filled with organized clot upon peritoneal entry 3) Bowel adherent to Left adnexal mass 4) Normal appearing uterus, ovaries and right fallopian tube Procedure: 1) Diagnostic Laparoscopy 2) Exploratory Laparotomy 3) Left Salpingectomy 4) (Lysis of Adhesions performed by intraoperative business info consultant General Surgeon Dr Dixon) See separate operative note. Anesthesia: GETA Surgeon: SAMANTHA GUSTAFSON Estimated blood loss: other (200 mL) Pathology: none (left fallopian tube) Specimen disposition: to lab Condition: stable Disposition: PACU (then to floor for observation overnight)
[2021-05-26] MEDS: HYDROmorphone 1 MG/1 ML INJ IV PRN ×2 (21:30→21:50)
[2021-05-26] MEDS ORDERED: ONDANSETRON 4 MG/2 ML INJ IV PRN (21:34)
[2021-05-26] MEDS ORDERED: HYDROmorphone 1 MG/1 ML INJ IV PRN (21:34)
[2021-05-26] MEDS: KETOROLAC 30 MG/1 ML INJ IV SCH (23:30)
[2021-05-27] MEDS ORDERED: ceFAZolin/NS 1 GM/50 ML 1 GM/50 ML BAG IV SCH (04:00)
[2021-05-27] MEDS: KETOROLAC 30 MG/1 ML INJ IV SCH (04:59)
[2021-05-27 06:11] LABS: Basophils % (Auto) 0.1 % (0.0-1.8); Hematocrit 31.4 % (30.3-42.9); Hemoglobin 10.7 gm/dl (10.1-14.3); Lymphocytes # (Auto) 2.5 K/mm3 (1.2-5.4); Lymphocytes % (Auto) 14.1 % (13.4-35.0); Mean Corpuscular HGB Conc 34 % (30-34); Mean Corpuscular Volume 91 fl (79-97); Monocytes # (Auto) 0.7 K/mm3 (0.0-0.8); Monocytes % (Auto) 4.2 % (0.0-7.3); Platelet Count 440 K/mm3 (140-440); Red Blood Count 3.46 M/mm3 (3.65-5.03); Red Cell Distribution Width 14.3 % (13.2-15.2)
--- NOTE | 2021-05-27 09:23 | Progress Note ---
Assessment and Plan A: Postoperative day #1 status post diagnostic laparoscopy, exploratory laparotomy, left salpingectomy, and lysis of adhesions doing well Obesity P: Plan for discharge today with follow-up next week with Dr. Jensen in the office. Subjective - Subjective Date of service: 05/27/21 Principal diagnosis: s/p diagnostic laparoscopy, exploratory laparotomy, left salpingectomy and Interval history: Patient without complaints this morning. She voided 3 times overnight. She is passing flatus and tolerating regular oral intake. Patient reports: appetite normal, voiding normally, pain well controlled, flatus, ambulating normally, no bowel movement Objective - Vital Signs Latest vital signs: Vital Signs Temp Pulse Resp BP BP Pulse Ox 05/27/21 04:40 98.1 F 68 20 114/70 97 05/26/21 22:45 97.4 F L 77 18 144/79 98 05/26/21 22:30 82 17 146/82 100 05/26/21 22:20 15 05/26/21 22:15 71 18 152/84 100 05/26/21 22:00 65 15 145/87 100 05/26/21 21:50 15 05/26/21 21:45 63 16 145/80 100 05/26/21 21:30 64 16 152/79 100 05/26/21 21:15 71 15 152/79 100 05/26/21 21:10 78 18 150/85 100 05/26/21 21:05 79 17 144/77 100 05/26/21 21:00 97.3 F L 82 16 152/84 100 05/26/21 13:35 98.5 F 91 H 16 129/84 97 Intake and Output 05/26/21 05/27/21 05/27/21 22:59 06:59 14:59 Intake Total 500 600 240 Output Total 1100 250 Balance 500 -500 -10 Intake: IV 500 Oral 480 240 Intake, Free Water 120 Output: Urine 1100 250 Void 1100 250 Other: Total, Intake Amount 120 240 Total, Output Amount 400 250 Voiding Method Bedpan # Voids Void 1 Weight 97.522 kg - Exam Breasts: Present: deferred Abdomen: Present: soft (obese ) Extremities: Present: normal Incision: Present: intact (with skin glue ) - Labs Labs: Abnormal lab results 05/26/21 05/27/21 Range/Units 14:25 05:52 WBC 17.6 H (4.5-11.0) K/mm3 RBC 3.46 L (3.65-5.03) M/mm3 Seg Neutrophils % 81.6 H (40.0-70.0) % Seg Neutrophils # 14.4 H (1.8-7.7) K/mm3 HCG, Quant 499.1 H (0-4) mIU/mL
--- NOTE | 2021-05-27 09:27 | Discharge Summary ---
Providers - Providers Date of Admission: 05/26/21 21:07 Date of discharge: 05/27/21 Attending physician: SAMANTHA JENSEN Primary care physician: PATTERN MOLDER Hospitalization Reason for admission: other (pelvic pain, left ectopic ) Procedure details: Diagnostic laparoscopy, exploratory laparotomy, left salpingectomy and lysis of adhesions Please see operative report Incision: intact Discharge diagnosis: other (Left ectopic , Pelvic Pain, Obesity ) Hospital course: The patient was admitted with finding of 6 cm left adnexal mass and abdominal pain concerning for left ectopic . She subsequently underwent diagnostic laparoscopy, exploratory laparotomy, left salpingectomy and lysis of adhesions which she tolerated well. She was observed overnight for adequate pain control and met discharge criteria on postoperative day #1. She will follow-up in [address] Jensen in the office. Condition at discharge: Stable Disposition: 01 HOME / SELF CARE / HOMELESS - Discharge Diagnoses (1) Pelvic pain Status: Acute (2) Obesity Status: Acute Qualifiers: Obesity type: unspecified obesity type Obesity classification: adult class 2 (BMI 35 - 39.9) Serious obesity comorbidity presence: unspecified whether serious comorbidity present Body mass index: BMI 36.0-36.9 Qualified Code(s): E66.9 - Obesity, unspecified; Z68.36 - Body mass index [BMI] 36.0-36.9, adult Plan - Discharge Medications Prescriptions: Docusate Sodium [Colace] 100 mg PO BID PRN #60 capsule PRN Reason: Constipation Ibuprofen [Motrin] 800 mg PO Q8HR PRN #30 tablet PRN Reason: Pain, Moderate (4-6) oxyCODONE /ACETAMINOPHEN [Percocet 5/325] 1 tab PO Q6HR PRN #30 tablet PRN Reason: Pain - Provider Discharge Summary Activity: routine, no sex for 6 weeks, no heavy lifting 4 weeks, no strenuous exercise Diet: routine Instructions: routine Additional instructions: [] Smoking cessation referral if applicable(refer to patient education folder for contact #) [] Refer to [facility] Booklet Call your doctor immediately for: * Fever > 100.5 * Heavy vaginal bleeding ( >1 pad per hour) * Severe persistent headache * Shortness of breath * Reddened, hot, painful area to leg or breast * Drainage or odor from incision. * Keep incision clean and dry at all times and follow doctor's instructions regarding bathing/showering - Follow up plan Follow up: PRIMARY CAREMD [Primary Care Provider] - 3-5 Days SAMANTHA JENSEN MD [Staff Physician] - 7 Days
[2021-05-27 12:26] VITALS: BP 113/66
== END 2021-05-27 13:45 | disposition home or self-care (01) ==
LOC: ED 13:31 → OB 21:07
PROVIDERS: ADMIT Obstetrics & Gynecology; ATTEND Obstetrics & Gynecology
DX: O00.90 Unspecified ectopic pregnancy without intrauterine pregnancy (principal); R10.2 Pelvic and perineal pain; E66.9 Obesity, unspecified; Z98.51 Tubal ligation status; Z3A.00 Weeks of gestation of pregnancy not specified
CPT/HCPCS: 36415; 59120; 80053; 84702; 85025; 86850; 86900; 86901; 96365; 96375; 96376; 99284; G0378; J0690; J1170; J1885; J2270; J2405; J2790; J7030; Q0162

== ENCOUNTER 2022-03-01 15:48 | Emergency (ER) | payer OTHER ==
[2022-03-01 19:35] VITALS: BP 120/78
[2022-03-01] MEDS ORDERED: traMADol 50 MG TAB PO ONE (20:48)
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
== END 2022-03-01 21:42 | disposition home or self-care (01) ==
LOC: ED 15:48
DX: S16.1XXA Strain of muscle, fascia and tendon at neck level, initial encounter (principal); S39.012A Strain of muscle, fascia and tendon of lower back, initial encounter; F17.200 Nicotine dependence, unspecified, uncomplicated; Z98.51 Tubal ligation status; Z79.899 Other long term (current) drug therapy; V87.7XXA Person injured in collision between other specified motor vehicles (traffic), initial encounter; Y93.89 Activity, other specified; Y92.488 Other paved roadways as the place of occurrence of the external cause; Y99.8 Other external cause status
CPT/HCPCS: 99282